=== PATIENT | male | born 1985 | race Two or more races ===

== ENCOUNTER → 2024-11-10 | Emergency (ER) | payer OTHER ==
[~2024-11-10] VITALS: Ht 167.6 cm; Wt 88.5 kg
[~2024-11-10] MED LIST: ACID REDUCER20 M1 PO; HUMALOG100 UNIT/2 SQ; LANTUS SOL100 UNIT/1 SQ; MIDODRINE HCL10 MG PO; NIFEDIPINE20 MG PO; PIPERACILLIN/TAZOBACTAM SODIUM 2.25 GM VIAL IV ONE; RENVELA0.8 GM PO
[2024-11-11 01:53] LABS: ERYTHROCYTE SEDIMENTATION RATE > 130 mm/hr (0-15)
[2024-11-11 01:54] LABS: BASO % 0.3 % (0.1-1.2); EOS # 0.20 (0.04-0.54); EOS % 1.2 % (0.7-7.0); LYMPH # 2.36 (1.18-3.74); LYMPH % 14.7 % (19.3-53.1); MEAN PLATELET VOLUME 11.30 fl (9.4-12.4); MONO # 2.18 (0.24-0.82); NEUT # 11.20 (1.56-6.13); NEUT % 69.6 % (34.0-71.1); RED CELL DISTRIBUTION WIDTH 14.2 % (11.6-14.4)
[2024-11-11 02:12] LABS: MONO % 13.6 % (4.7-12.5)
[2024-11-11 02:26] LABS: ALT/SGPT 17.0 U/L (12-78); AST/SGOT 16.0 U/L (15-37); BILIRUBIN TOTAL 0.38 mg/dL (0.3-1.2); GLOBULINA 5.1 G/DL (2.4-3.5)
[2024-11-11 02:34] LABS: OSMOLALITY SERUM 289.0 MOSM/KG (275-295)
[2024-11-11 02:41] LABS: BUN CREA RATIO 5.0 (7.0-25.0); GFR 5.89
[2024-11-11 02:42] LABS: CREATININE SERUM 9.92 mg/dL (0.70-1.30); GLUCOSE FASTING 232.0 mg/dL (65-100)
== END | disposition designated cancer center or children's hospital (05) ==
LOC: ER 21:56
PROVIDERS: General Practice
DX: I96 Gangrene, not elsewhere classified (principal); L03.115 Cellulitis of right lower limb; E11.9 Type 2 diabetes mellitus without complications; Z79.4 Long term (current) use of insulin; I10 Essential (primary) hypertension; N19 Unspecified kidney failure; Z88.8 Allergy status to other drugs, medicaments and biological substances